=== PATIENT | female | born 1995 | race Caucasian/White ===

== ENCOUNTER 2019-07-12 11:30 | Inpatient (IN) ==
[2019-07-12] MEDS ORDERED: OXYTOCIN 30 UNITS/500 ML BAG IV PRN ×2 (12:28→15:21)
--- NOTE | 2019-07-12 12:34 | History & Physical Report ---
Date of Service July 12, 2019 Assessment & Plan (1) Normal labor: Admit. epidural on demand. Fetus reassuring, category one. 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 MRI in 2017, per neurology in [place], shows resolution of AVM. After discussion with [facility], patient ok for attempt at pushing and vaginal delivery. This is her desire. Will again discuss with her the possibility of potential brain bleed with pushing. My plan would be epidural, labor down and minimal pushing. Again, the patient has declined c/s. I believe that the patient understands the risks. History of Present Illness Chief Complaint: contractions Primary Care Provider: NO PCP Patient is a 23yowf who presents to labor and delivery at 39 4/7 weeks who presents to labor and delivery complaining of increasing contractions since 8am. Notes no lof/vb. +fm. complicated by late presentation at 20 weeks. Had US in Jan in [place] confirming , but did not pursue care and her first visit with us was 02/22/19. She has a ventricular-peritoneal shunt that had been managed by peds neuro at [facility] in [place]. She had a prior intracranial aneurysm. She had been d/c from their care and was to establish with adult neuro which never occurred. Contacted peds neuro at [facility] and they would not comment on if patient could be a vaginal delivery. Was eventually able to talk with neuro at [facility] who noted that she had an MRI in 2017 with no remaining aneurysm. They would not comment on vaginal delivery (Dr. Lee). Dr. Underwood spoke with MFM, Dr. Gallagher, at [facility]. She thought she would be an ok risk for vaginal delivery. c/s only for ob indications. Dr. Underwood discussed this with the patient. Patient is very against a c/s and wants to proceed with vaginal delivery. labs--A-/ab-/ri/rprnr/hepb-/hiv-/gc/ct-/gtt-/gbs-/declined genetic testing. Allergies Allergy/AdvReac Type Severity Reaction Status Date / Time No Known Allergies Allergy Verified 07/12/19 11:54 Home Medications Home Medications Medication Instructions Recorded Confirmed Type prenat.vits,akosua,rhb-iujp-tcgia 1 tab PO DAILY 12/04/19 04/22/20 History breast pump #1 ea 04/24/19 07/04/19 Rx Patient History Medical History (Updated 07/12/19 @ 12:44 by Noemy Ramírez MD, FACOG) Brain aneurysm surgery in 2007; has ventricular-peritoneal shunt; Followed neurology in [facility]; cleared for vaginal delivery. Per 2017 MRI, no remaining aneurysm. Depression with anxiety Encounter for care or examination of lactating mother Encounter for anatomic survey Scoliosis Varicella vaccine Surgical History H/O brain surgery [place] teeth removed Family History Grandmother Diabetes Social History Preferred Language: [place] School Director Required: No Beliefs That Will Affect Care: None marital status: Single marital status details: Maximo Garber (31) [phone] Current Living Situation Comment: lives with FOB, 1 cat, pt not changing litter current occupational status: unemployed Other Information That Helps Us Care for You: No Feels Safe at Home: Yes Safety Concerns: Feels Safe At This Time Smoking Status: Never smoker Hx Alcohol Use: No Hx Substance Use: No 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, 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 Review of Systems All systems reviewed & are unremarkable except as noted in HPI & below Physical Exam Constitutional: WD/WN, vitals as above (very uncomfortable with contractions) Gastrointestinal (Abdomen): soft, gravid, nt Psychiatric: A+Ox3, euthymic affect Genitourinary: cx--4-5/100/-2, bulging bag toco--q2-4min efm--140s with mod variabiity, accels present, no decels Results & Data Vital Signs (Past 12 Hours) Vital Signs Temp Pulse Resp BP 07/12/19 11:51 37.0 C 96 H 16 131/73 07/12/19 11:49 37.0 C 96 H 16 131/73 Code Status & VTE Plan VTE Prophylaxis Plan VTE Prophylaxis will be ordered: No Coding Level of Care Code None Diagnoses Normal labor O80; Z37.9
[2019-07-12] MEDS: LACTATED RINGER'S 1,000 ML IV PRN ×3 (12:42→19:13)
[2019-07-12] MEDS ORDERED: ePHEDrine sulfate 50 MG/ML AMP ONE (12:45)
[2019-07-12 12:46] LABS: Hematocrit (blood only) 35.6 % (37-47); Hemoglobin 11.8 g/dL (12.0-16.0); Mean Corpuscular Hemoglobin 28.6 pg (25-34); Mean Corpuscular Volume 86.4 fL (80-100); Mean Platelet Volume 10.8 fL (7.4-10.4); Platelet Count 241 K/uL (130-400); RDW Coefficient of Variation 14.1 % (11.5-14.5); RDW Standard Deviation 43.7 fL (36.4-46.3); Red Blood Count 4.12 M/uL (4.2-5.4)
[2019-07-12] MEDS ORDERED: fentaNYL 2MCG/ML ROPIV 1.25MG/ML 100 ML BAG EPI ONE (12:46)
[2019-07-12] MEDS ORDERED: BUPIVACAINE 0.25% 30 ML VIAL ONE ×2 (12:46→18:03)
[2019-07-12] MEDS ORDERED: fentaNYL citrate 100 MCG/2 ML VIAL ONE ×2 (12:46→18:04)
[2019-07-12 12:52] LABS: Mean Corpuscular Hgb Conc 33.1 g/dL (32-36)
--- NOTE | 2019-07-12 13:21 | Anesthesiology Consultation ---
Date of Service July 12, 2019 Assessment & Plan Chart Review Chart Review: Acceptable Risk for Labor Epidural Consults Requested none History Height/Weight Height: 5 ft 2 in Weight: 61.689 kg Allergies Allergy/AdvReac Type Severity Reaction Status Date / Time No Known Allergies Allergy Verified 07/12/19 11:54 Medications Home Medications Medication Instructions Recorded Confirmed Last Taken prenat.vits,akosua,xsq-temn-ynylu 1 tab PO DAILY 02/22/19 07/12/19 07/11/19 21:00 breast pump #1 ea 04/24/19 07/04/19 Unknown Active Medications Generic Name Dose Route Start Last Admin Trade Name Freq PRN Reason Stop Dose Admin Lactated Ringer's 1,000 mls @ 125 mls/hr 07/12/19 12:28 07/12/19 12:42 Lr IV 07/14/19 12:27 999 mls/hr .Q8H PRN Administration L&D Protocol Protocol Past Medical History Medical History Brain aneurysm surgery in 2007; has ventricular-peritoneal shunt; Followed neurology in [facility]; cleared for vaginal delivery. Per 2017 MRI, no remaining aneurysm. Depression with anxiety Encounter for care or examination of lactating mother Encounter for anatomic survey Scoliosis Varicella vaccine Past Family History Family History Grandmother Diabetes Past Surgical History Surgical History H/O brain surgery [place] teeth removed Social History Smoking Status: Never smoker Hx Alcohol Use: No Hx Substance Use: No substance use type: does not use Physical Exam Vital Signs Last Vital Signs Temp 37.0 C 07/12/19 11:51 Pulse 97 H 07/12/19 13:33 Resp 16 07/12/19 11:51 BP 131/73 07/12/19 11:51 Pulse Ox 90 07/12/19 13:33 Testing Laboratory Results 07/12/19 12:37
[2019-07-12] MEDS ORDERED: NALOXONE HCL 0.4 MG/1 ML VIAL/CARP IV PRN (14:02)
[2019-07-12] MEDS ORDERED: fentaNYL 2MCG/ML ROPIV 1.25MG/ML 100 ML BAG EPI PRN (14:02)
[2019-07-12] MEDS ORDERED: ePHEDrine sulfate 50 MG/ML AMP IV PRN (14:02)
[2019-07-12] MEDS ORDERED: NALBUPHINE HCL INJ 10 MG/ML AMP IV PRN (14:02)
[2019-07-12] MEDS ORDERED: DiphenhydrAMINE HCL 50 MG/ML VIAL IV PRN (14:02)
[2019-07-12] MEDS ORDERED: NALOXONE HCL 1 MG in SODIUM CHLORIDE 0.9% 1000ML 1,000 ML IV PRN (14:02)
--- NOTE | 2019-07-12 15:21 | Labor Progress Brief Note ---
Date of Service July 12, 2019 Subjective comfortable Assessment & Plan (1) Normal labor: continue current management, fetus category one, pit if needed. anticipate . Physical Exam Constitutional: WD/WN, vitals as above Psychiatric: A+Ox3, euthymic affect Genitourinary: cx--/-2 arom--clear toco--q3-5min efm--120s with mod variaiblity, accels present, no decels Results & Data Vital Signs (Past 12 Hours) Vital Signs Temp Pulse Resp BP Pulse Ox 07/12/19 15:15 73 98 07/12/19 15:10 99 H 100 07/12/19 15:09 37.0 C 74 113/56 L 07/12/19 15:05 70 98 07/12/19 15:00 73 16 97 07/12/19 14:57 67 112/52 L 07/12/19 14:55 71 98 07/12/19 14:50 72 97 07/12/19 14:46 66 111/55 L 07/12/19 14:45 70 16 99 07/12/19 14:43 71 111/54 L 07/12/19 14:40 71 98 07/12/19 14:36 76 104/57 L 07/12/19 14:35 74 98 07/12/19 14:31 82 103/57 L 07/12/19 14:30 76 18 98 07/12/19 14:28 75 99/56 L 07/12/19 14:25 78 98 07/12/19 14:22 87 144/61 H 07/12/19 14:20 85 97 07/12/19 14:18 84 126/58 L 07/12/19 14:15 88 18 98 07/12/19 14:11 86 132/60 07/12/19 14:10 85 97 07/12/19 14:08 81 125/63 07/12/19 14:07 90 123/68 07/12/19 14:05 84 98 07/12/19 14:02 83 128/60 07/12/19 14:00 86 18 100 07/12/19 13:56 81 126/58 L 07/12/19 13:55 92 H 100 07/12/19 13:54 36.9 C 83 20 145/82 H 07/12/19 13:51 92 H 124/66 07/12/19 13:50 83 99 07/12/19 13:49 82 125/60 07/12/19 13:46 89 130/65 07/12/19 13:45 93 H 99 07/12/19 13:43 93 H 147/63 H 07/12/19 13:41 90 93 07/12/19 13:40 92 H 98 07/12/19 13:33 97 H 90 07/12/19 13:32 94 H 98 07/12/19 13:27 90 100 07/12/19 13:22 88 99 07/12/19 13:17 87 100 07/12/19 13:12 79 99 07/12/19 13:07 82 98 07/12/19 13:02 81 99 07/12/19 12:57 82 98 07/12/19 12:52 84 99 07/12/19 11:51 37.0 C 96 H 16 131/73 07/12/19 11:49 37.0 C 96 H 16 131/73 Coding Level of Care Code None Diagnoses Normal labor O80; Z37.9
--- NOTE | 2019-07-12 18:22 | Anesthesiology Progress Note ---
Date of Service July 12, 2019 Subjective Pt stated having increased labor pains. The epidural was bolused with 5 mL of bupivacaine 0.125% and 50mcg of fentanyl. VSS throughout. The patient stated having improved labor pains. Physical Exam Vital Signs: Last Vital Signs Temp 98.8 F 07/12/19 17:04 Pulse 86 07/12/19 18:16 Resp 16 07/12/19 18:00 BP 110/56 L 07/12/19 18:16 Pulse Ox 98 07/12/19 18:15 Results & Data Medications Administered Lactated Ringer's (Lr) 1,000 mls @ 125 mls/hr IV .Q8H PRN; Protocol PRN Reason: L&D Protocol Stop: 07/14/19 12:27 Last Infusion: 07/12/19 13:59 Dose: 125 mls/hr Documented by: [id number] Admin: 07/12/19 13:46 Dose: 999 mls/hr Documented by: [id number] Infusion: 07/12/19 13:43 Dose: 999 mls/hr Documented by: [id number] Admin: 07/12/19 12:42 Dose: 999 mls/hr Documented by: [id number]
[2019-07-12] MEDS: OXYTOCIN 30 UNITS/500 ML BAG IV PRN ×2 (20:52→21:30)
[2019-07-12] MEDS ORDERED: ACETAMINOPHEN 325 MG TAB PO PRN (21:11)
--- NOTE | 2019-07-12 21:14 | Delivery Summary ---
Vaginal Delivery Summary Date of Service July 12, 2019 Vaginal Delivery Summary Pre-operative Diagnosis: at 39 weeks labor Post-operative Diagnosis: same Procedure: epidural arom bilateral labial and left vaginal laceration and repair EBL: 400cc Anesthesia: epidural and local infiltration with lidocaine Procedure: The patient pushed for about 20 min to deliver a viable female in karsten position. The nose and mouth were bulb suctioned on the perineum, a loose nuchal cord x 1 reduced, and the rest of the was then delivered without difficulty. The baby was vigorous. The nose and mouth were again bulb suctioned and the was placed in the maternal abdomen for drying and attention. Cord was clamped and cut at one minute of life. Cord blood and segment obtained. Placenta delivered spontaneous, intact with a three vessel cord. Cervix/sulci/rectum were intact. bilateral labial and a small left vaginal tears repaired in the normal standard fashion. Hemostasis obtained with dilute pitocin and fundal massage. Apgars were 8/9. Mother and baby doing well at the end of the delivery.
[2019-07-12] MEDS ORDERED: HYDROCORTISONE ACETATE 25 MG SUPP PR PRN (21:35)
[2019-07-12] MEDS ORDERED: DIPHTHERIA/TETANUS/PERTUSSIS 0.5 ML SYR/VIAL IM ONE (21:35)
[2019-07-12] MEDS ORDERED: bisacodyL 10 MG SUPP PR PRN (21:35)
[2019-07-12] MEDS ORDERED: BENZOCAINE 20% AER SPR 82.5 GM CAN EXT PRN (21:35)
[2019-07-12] MEDS ORDERED: SUPERCREAM 0.870% 15 GM JAR EXT PRN (21:35)
[2019-07-13] MEDS: IBUPROFEN 600 MG TAB PO PRN ×4 (00:57→16:42)
[2019-07-13 06:13] LABS: Hematocrit (blood only) 29.9 % (37-47); Hemoglobin 9.8 g/dL (12.0-16.0)
--- NOTE | 2019-07-13 07:25 | Obstetrical Progress Note ---
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 No neuro issues. Needs to get set up with adult neuro pp and they are ok with getting started with [facility]. (2) Status post vaginal delivery: Doing well. Routine PPD1 . Subjective Ambulation: ambulating normally Voiding: no voiding problems (did have to have straight cath x 1) Passing Gas:: Yes Diet Tolerance:: regular diet Lochia:: Moderate Feeding Type:: breast feeding FOB in room with patient. He notes no changes in her mental status. Patient notes no changes in her neurological status. Denies dunlap Physical Exam Constitutional WD/WN, vitals as above Cardiovascular Extremities: no calf tenderness and no edema Gastrointestinal (Abdomen) soft, nt,nd, ff/nt 2 below u Psychiatric A+Ox3, euthymic affect Results & Data Vital Signs (Past 12 Hours) Vital Signs Temp Pulse Pulse Resp BP BP Pulse Ox 07/13/19 04:38 36.8 C 97 H 20 109/60 07/13/19 00:31 37.0 C 80 20 130/74 07/12/19 23:20 107 H 98 07/12/19 23:15 93 H 98 07/12/19 23:10 96 H 98 07/12/19 23:07 96 H 135/71 07/12/19 23:05 96 H 99 07/12/19 23:00 92 H 98 07/12/19 22:55 87 100 07/12/19 22:52 91 H 125/68 07/12/19 22:50 88 99 07/12/19 22:45 96 H 98 07/12/19 22:40 91 H 99 07/12/19 22:37 100 H 18 124/63 07/12/19 22:35 88 98 07/12/19 22:30 98 H 99 07/12/19 22:25 86 99 07/12/19 22:22 86 126/58 L 07/12/19 22:20 84 99 07/12/19 22:15 92 H 100 07/12/19 22:10 90 100 07/12/19 22:08 89 18 125/59 L 07/12/19 22:05 95 H 99 07/12/19 22:00 100 H 99 07/12/19 21:55 95 H 99 04/22/20 21:52 100 H 18 136/61 04/20 21:50 106 H 98 0420 21:45 125 H 99 0420 21:40 84 100 0420 21:37 93 H 18 139/69 0420 21:36 97 H 93 20 21:35 92 H 100 20 21:30 92 H 98 20 21:25 90 99 20 21:22 100 H 18 137/61 0420 21:21 90 93 0420 21:20 92 H 98 20 21:15 87 98 04 21:10 97 H 99 07/12/19 21:07 96 H 18 139/62 04 21:05 91 H 100 07/12/19 21:00 96 H 98 07/12/19 20:56 96 H 130/58 L 07/12/19 20:55 100 H 98 07/12/19 20:50 96 H 97 07/12/19 20:49 18 07/12/19 20:47 97 H 89 L 07/12/19 20:45 94 H 100 20 20:43 99 H 126/59 L 20 20:40 88 85 L 20 20:37 103 H 86 L 20 20:35 101 H 100 20 20:30 117 H 18 95 20 20:29 107 H 94 20 20:28 110 H 129/73 20 20:25 101 H 100 20 20:22 103 H 87 L 20 20:20 96 H 100 20 20:15 95 H 100 0420 20:14 108 H 92 0420 20:12 86 121/62 0420 20:10 113 H 98 07/12/19 20:05 86 99 0420 20:00 89 18 99 0420 19:56 94 H 116/57 L 0420 19:55 95 H 99 20 19:50 90 99 0420 19:45 82 99 0420 19:41 83 117/56 L 04/22/20 19:40 78 100 07/12/19 19:35 81 100 07/12/19 19:30 86 18 99 07/12/19 19:28 96 H 124/65 07/12/19 19:25 105 H 100
[2019-07-13] MEDS: DOCUSATE SODIUM 100 MG CAP PO SCH ×2 (07:59→20:12)
[2019-07-13] MEDS: PRENATAL VITAMIN 1 TAB PO SCH (07:59)
[2019-07-13] MEDS: OXYCODONE/ACETAMINOPHEN 5mg/325mg TAB PO PRN ×3 (08:01→16:42)
[2019-07-13] MEDS ORDERED: bisacodyL 5 MG TABEC PO SCH (20:00)
[2019-07-14] MEDS: IBUPROFEN 600 MG TAB PO PRN (02:27)
--- NOTE | 2019-07-14 07:21 | Obstetrical Progress Note ---
Date of Service July 14, 2019 ppd 2 Assessment & Plan (1) Status post vaginal delivery: Doing well. no ext pain. No depression Day #:: 2 Subjective Ambulation: ambulating normally Voiding: no voiding problems Diet Tolerance:: regular diet Lochia:: Small Current Pain Level(1-10): 2 no ext pain Physical Exam Constitutional WD/WN, vitals as above Genitourinary normal external appearance Results & Data Vital Signs (Past 12 Hours) Vital Signs Temp Pulse Resp BP Pulse Ox 07/13/19 23:00 98.4 F 93 H 18 112/67 99 07/13/19 19:25 98.1 F 91 H 18 115/72 99
[2019-07-14] MEDS: DOCUSATE SODIUM 100 MG CAP PO SCH (10:25)
[2019-07-14] MEDS: PRENATAL VITAMIN 1 TAB PO SCH (10:25)
[2019-07-14 16:41] VITALS: BP 126/72; PULSE 99; TEMP 98.2; O2SAT 98
--- NOTE | 2019-07-19 15:02 | Coding Query ---
CODING QUERY To promote full compliance with coding requirements relating to patient care, provider participation is requested in all cases of hollock maker uncertainty. Please assist us with the question(s) below: Coding Question(s): Please document the degree of laceration. Physician's Response(s): If you will look at the operative report, there were bilateral labial and a small vaginal laceration. this is not a perineal laceration so I cannot note degree. If you have to make something up to fulfill the criteria , I guess you can call it a first. Thank you Meryl Valencia Principal Diagnosis: "that condition established after study, to be chiefly responsible for occasioning the admission of the patient to the hospital for care." Co-Existing Principal Diagnosis: "when two or more diagnoses equally meet the criteria for principal diagnosis as determined by the circumstances of admission, diagnostic work up, and/or therapy provided, and the Alphabetic Index, Tabular List, or another coding guideline does not provide sequencing direction, any one of the diagnoses may be sequenced first." "When the physician has documented what appears to be a current diagnosis in the body of the record, but has not included the diagnosis in the final diagnostic statement, the physician should be asked whether the diagnosis should be added." (Source [facility]oding [facility] 2 QTR90. p3-4) NIA
== END 2019-07-14 18:20 | disposition home or self-care (01) | DRG 807 ==
LOC: OPB 11:30 → 4S1 11:30 → 4S2 07-13 01:05